=== PATIENT | female | born 1960 | race Caucasian/White ===

== ENCOUNTER 2018-12-01 11:40 | Inpatient (IN) | payer OTHER ==
[~2018-12-01] VITALS: Ht 167.6 cm; Wt 77.1 kg
[2018-12-01] MEDS ORDERED: CYCL10TA9 PO (11:50)
[2018-12-01] MEDS ORDERED: ACET-1467 PO (11:50)
[2018-12-01] MEDS ORDERED: NAPR-1009 PO (11:50)
[2018-12-01] MEDS ORDERED: IV NORMAL SALINE 1000 ML BAG IV ONE (12:00)
[2018-12-01 12:14] LABS: BASOPHILS % (AUTO) 0.4 % (0.0-2.0); EOSINOPHILS % (AUTO) 0.1 % (0.0-7.0); HEMOGLOBIN 14.1 g/dL (10.9-14.3); LYMPHOCYTES # (AUTO) 1.2 K/uL (20.0-40.0); LYMPHOCYTES % (AUTO) 15.1 % (20.5-51.5); MEAN CORPUSCULAR HEMOGLOBIN 32.8 uug (24.7-32.8); MEAN CORPUSCULAR HGB CONC 34 g/dL (32.3-35.6); MEAN CORPUSCULAR VOLUME 97.8 fL (75.5-95.3); MONOCYTES # (AUTO) 0.3 K/uL (2.0-10.0); MONOCYTES % (AUTO) 3.6 % (0.0-11.0); NEUTROPHILS # (AUTO) 6.3 K/uL (1.8-8.9); NEUTROPHILS % (AUTO) 80.8 % (38.5-71.5); PLATELET COUNT (AUTO) 215 K/uL (179-408); RED BLOOD CELL COUNT(AUTO) 4.29 MIL/uL (3.63-4.92); WHITE BLOOD COUNT (AUTO) 7.8 K/uL (3.8-11.8)
[2018-12-01 12:20] LABS: ETHANOL < 3 MG/DL (0-0)
[2018-12-01 12:25] LABS: ALANINE AMINOTRANSFERASE 36 U/L (14-59); ALKALINE PHOSPHATASE 59 U/L (50-136); ASPARTATE AMINOTRANSFERASE 33 U/L (15-37); BILIRUBIN,DIRECT 0.2 mg/dL (0.0-0.2); CARBON DIOXIDE 27 mmol/L (21-32); CHLORIDE 105 mmol/L (98-107); CREATININE 0.6 mg/dL (0.6-1.3); GLUCOSE 119 mg/dL (74-106); POTASSIUM 3.8 mmol/L (3.5-5.1); TOTAL PROTEIN, SERUM 7.5 g/dL (6.4-8.2); UREA NITROGEN, BLOOD 8 mg/dL (7-18)
[2018-12-01 12:26] LABS: ACETAMINOPHEN < 2.0 ug/mL (10-30)
--- NOTE | 2018-12-01 13:14 | NUR ---
Panel call to [email or web address] [facility] placed
[2018-12-01] MEDS ORDERED: MAGNESIUM HYDROXIDE 30 ML LIQUID UDC PO PRN (14:45)
[2018-12-01] MEDS ORDERED: ACETAMINOPHEN 325 MG TABLET PO PRN (14:45)
[2018-12-01] MEDS ORDERED: ONDANSETRON 4 MG/2 ML VIAL IV PRN (14:45)
--- NOTE | 2018-12-01 15:00 | NUR ---
ADMIT A 58YO FEMALE FROM ER WITH A CHIEF C/O OVERDOSING A MEDICATION. PT IS STILL DROWSY BUT AROUSABLE TO CALL. SLEEPING MOSTLY. 1:1 SITTER IS MADE AVAILBLE FOR SAFETY.
[2018-12-01] MEDS ORDERED: DEXTROSE 50% 50 ML VIAL IV PRN (15:30)
[2018-12-01 16:30] VITALS: BP 130/84
[2018-12-01] MEDS: BLOOD SUGAR DIAGNOSTIC 1 EACH STRIP VI SCH (17:51)
[2018-12-01] MEDS: ENOXAPARIN SODIUM 40 MG/0.4 ML DISP.SYRIN SQ SCH (17:53)
--- NOTE | 2018-12-01 18:00 | NUR ---
NO APPARENT RESPIRATORY DISTRESS NOTED. NPO AT THIS TIME.
--- NOTE | 2018-12-01 19:20 | NUR ---
RECEIVED PT AWAKE, ALERT AND ORIENTEDX2. AT BEDSIDE. SITTER AT BEDSIDE. PT SHOWS NO SIGNS OF ACUTE DISTRESS.PT IV INTACT. SAFETY AND COMFORT PROVIDED.WILL CONTINUE TO MONITOR.
[2018-12-01] MEDS: IV D5 1/2 NS 1000 ML 1,000 ML IV PRN (19:26)
[2018-12-01 20:08] VITALS: BP 110/68
[2018-12-02 00:25] VITALS: BP 132/73
[2018-12-02 05:34] VITALS: BP 126/70
[2018-12-02 06:02] LABS: BASOPHILS % (AUTO) 0.4 % (0.0-2.0); EOSINOPHILS # (AUTO) 0.1 K/uL (0.0-0.7); EOSINOPHILS % (AUTO) 2.4 % (0.0-7.0); HEMATOCRIT 37.9 % (31.2-41.9); HEMOGLOBIN 12.9 g/dL (10.9-14.3); LYMPHOCYTES % (AUTO) 33.1 % (20.5-51.5); MEAN CORPUSCULAR HEMOGLOBIN 33.2 uug (24.7-32.8); MEAN CORPUSCULAR HGB CONC 34 g/dL (32.3-35.6); MONOCYTES # (AUTO) 0.4 K/uL (2.0-10.0); MONOCYTES % (AUTO) 6.6 % (0.0-11.0); NEUTROPHILS # (AUTO) 3.4 K/uL (1.8-8.9); NEUTROPHILS % (AUTO) 57.5 % (38.5-71.5); PLATELET COUNT (AUTO) 227 K/uL (179-408); RED BLOOD CELL COUNT(AUTO) 3.87 MIL/uL (3.63-4.92); WHITE BLOOD COUNT (AUTO) 5.9 K/uL (3.8-11.8)
[2018-12-02 06:18] LABS: BILIRUBIN,TOTAL 0.9 mg/dL (0.2-1.0); CREATININE 0.7 mg/dL (0.6-1.3); MAGNESIUM 1.7 mg/dL (1.8-2.4); PHOSPHOROUS 3.5 mg/dL (2.5-4.9); POTASSIUM 3.1 mmol/L (3.5-5.1); TOTAL PROTEIN, SERUM 5.9 g/dL (6.4-8.2)
[2018-12-02 06:27] LABS: THYROID STIMULATING HORMONE 7.834 mIU/mL (0.358-3.740)
--- NOTE | 2018-12-02 06:33 | NUR ---
PT SLEPT THROUGHOUT THE SHIFT . PT SHOWS NO SIGNS OF ACUTE DISTRESS. PRESCRIBED MEDICATION GIVEN AND PT TOLERATED IT WELL. SAFETY AND COMFORT PROVIDED. IV INTACT. SITTER AT BEDSIDE FOR SAFETY. PT HAD EPISODES OF ANXIETY. PT SAYING SHE HAS SHORTNESS OF BREATH BUT IN PULSE OXIMETER PT SHOWING 100% ROOM AIR. PT SIGNED BELONGING LIST THAT SHE HAS $13. PT SIGNED THAT SHE HAS MEDICATION. ALL NEEDS ARE MET. WILL ENDORSE ACCORDINGLY TO INCOMING NURSE FOR CONTINUITY OF CARE.
[2018-12-02] MEDS: BLOOD SUGAR DIAGNOSTIC 1 EACH STRIP VI SCH (06:39)
[2018-12-02] MEDS: IV D5 1/2 NS 1000 ML 1,000 ML IV PRN ×2 (07:16→22:32)
--- NOTE | 2018-12-02 07:30 | NUR ---
RECIEVED PT IN BED WITH 1:1 SITTER, AWAKE AND ORIENTED X3. NO APPARENT DISTRESS NOTED.
[2018-12-02 07:45] LABS: *BILIRUBIN,URIN NEGATIVE (NEGATIVE); *BLOOD, URINE NEGATIVE (NEGATIVE); *CLARITY,URINE CLEAR (CLEAR); *COLOR,URINE YELLOW (YELLOW); *KETONES,URINE NEGATIVE (NEGATIVE); *UROBILINOGEN,URINE 0.2 E.U./dl (NORMAL); LEUKOCYTE ESTERASE ,URINE NEGATIVE (NEGATIVE); NITRITE, URINE NEGATIVE (NEGATIVE); PH,URINE 5.5 (5.0-8.0); UGLUCOSE NEGATIVE (NEGATIVE)
[2018-12-02 07:59] LABS: *AMPHETAMINE, URINE NEGATIVE (NEGATIVE); *BARBITURATE, URINE NEGATIVE (NEGATIVE); *CANNABINOID, URINE POSITIVE (NEGATIVE); *COCCAINE, URINE NEGATIVE (NEGATIVE); *OPIATE, URINE POSITIVE (NEGATIVE); *PHENCYCLIDINE SCREEN,URINE NEGATIVE (NEGATIVE)
--- NOTE | 2018-12-02 08:00 | NUR ---
PT IS STARTING TO BE JITTERY AND ANXIOUS. REQUESTED TO HAVE A VALIUM. NOTIFIED AAKASH ALEXANDER.
[2018-12-02 08:01] VITALS: BP 114/71
[2018-12-02] MEDS: MAGNESIUM SULFATE/D5W 100 ML IV SCH ×2 (08:06→09:07)
--- NOTE | 2018-12-02 09:00 | NUR ---
REPLACED MAGNESIUM AND POTASSIUM IVPB ORDERED.
--- NOTE | 2018-12-02 09:00 | NUR ---
PT IS EATIONG HER BREAKFAST, TOLERATED WELL. PT IS MEDICATED WITH VALIUM 10MG PO ORDERED. ALERTED THE CRISIS TEAM PER ANDRE NOISE TESTER.
[2018-12-02] MEDS: ENOXAPARIN SODIUM 40 MG/0.4 ML DISP.SYRIN SQ SCH (09:10)
[2018-12-02] MEDS: DIAZEPAM 10 MG TABLET PO PRN ×2 (09:15→21:39)
--- NOTE | 2018-12-02 10:30 | NUR ---
HUGH FROM THE CRISIS TEAM CAME IN TO EVALUATE THE PT BUT PT WAS VERY SOUND ASLEEP.
[2018-12-02] MEDS: POTASSIUM CHLORIDE 50 ML IV SCH ×2 (10:59→12:05)
[2018-12-02 11:42] VITALS: BP 101/58
--- NOTE | 2018-12-02 13:00 | NUR ---
SEEN AND EXAMINED BY DR WHALEY WITH NEW ORDERS.
[2018-12-02 15:39] VITALS: BP 105/58
--- NOTE | 2018-12-02 18:30 | NUR ---
PT IS BEHAVED ALL DAY. ABLE TO AMBULATE TO THE BATHROOM WITH ASSISTANCE.
--- NOTE | 2018-12-02 19:20 | NUR ---
RECEIVED PT AWAKE, ALERT AND ORIENTEDX4. PT SHOWS NO SIGNS OF ACUTE DISTRESS. PT IV INTACT. AT BEDSIDE. SITTER AT BEDSIDE.SAFETY AND COMFORT PROVIDED. WILL CONTINUE TO MONITOR.
[2018-12-02 20:21] VITALS: BP 114/65
[2018-12-03 04:21] VITALS: BP 112/68
--- NOTE | 2018-12-03 06:52 | NUR ---
PT SLEPT THROUGHOUT THE SHIFT.PT SHOWS NO SIGNS OF ACUTE DISTRESS. PRESCRIBED MEDICATION GIVEN AND PT TOLERATED IT WELL. PT GIVEN VALIUM LAST NIGHT AT 2139H FOR PT BEING AGITATED. PT TOLERATED IT WELL. SAFETY AND COMFORT. PROVIDED. ALL NEEDS ARE MET. WILL ENDORSE ACCORDINGLY TO INCOMING NURSE FOR CONTINUITY OF CARE.
[2018-12-03 06:58] LABS: BASOPHILS % (AUTO) 0.5 % (0.0-2.0); EOSINOPHILS # (AUTO) 0.3 K/uL (0.0-0.7); EOSINOPHILS % (AUTO) 5.6 % (0.0-7.0); HEMATOCRIT 38.4 % (31.2-41.9); HEMOGLOBIN 12.8 g/dL (10.9-14.3); LYMPHOCYTES % (AUTO) 37.4 % (20.5-51.5); MEAN CORPUSCULAR HEMOGLOBIN 33.2 uug (24.7-32.8); MEAN CORPUSCULAR HGB CONC 34 g/dL (32.3-35.6); MEAN CORPUSCULAR VOLUME 99.1 fL (75.5-95.3); MONOCYTES # (AUTO) 0.3 K/uL (2.0-10.0); MONOCYTES % (AUTO) 6.1 % (0.0-11.0); NEUTROPHILS # (AUTO) 2.6 K/uL (1.8-8.9); NEUTROPHILS % (AUTO) 50.4 % (38.5-71.5); PLATELET COUNT (AUTO) 212 K/uL (179-408); RED BLOOD CELL COUNT(AUTO) 3.87 MIL/uL (3.63-4.92); WHITE BLOOD COUNT (AUTO) 5.2 K/uL (3.8-11.8)
[2018-12-03 07:10] LABS: CREATININE 0.8 mg/dL (0.6-1.3); MAGNESIUM 1.9 mg/dL (1.8-2.4); POTASSIUM 3.6 mmol/L (3.5-5.1)
[2018-12-03] MEDS: ENOXAPARIN SODIUM 40 MG/0.4 ML DISP.SYRIN SQ SCH (08:12)
[2018-12-03] MEDS: IV D5 1/2 NS 1000 ML 1,000 ML IV PRN (08:49)
[2018-12-03 10:40] VITALS: BP 102/61
--- NOTE | 2018-12-03 12:19 | NUR ---
d/c orders received noted and carried out,d/c heplock per md orders.dc instruction and education given to the pt,,pt left the facility via private car in stable condition
== END 2018-12-03 12:20 | disposition home or self-care (01) | DRG 812 ==
LOC: ER 11:41 → TELE3 14:32 → MEDSURG3 12-02 11:21
PROVIDERS: ADMIT Nurse Practitioner Acute Care; ATTEND Nurse Practitioner Acute Care
DX: T42.4X1A Poisoning by benzodiazepines, accidental (unintentional), initial encounter (principal); G92 Toxic encephalopathy; E44.1 Mild protein-calorie malnutrition; E83.42 Hypomagnesemia; F32.9 Major depressive disorder, single episode, unspecified; E87.6 Hypokalemia; M79.7 Fibromyalgia; M19.90 Unspecified osteoarthritis, unspecified site; R73.9 Hyperglycemia, unspecified; E88.09 Other disorders of plasma-protein metabolism, not elsewhere classified; Z68.27 Body mass index [BMI] 27.0-27.9, adult; T40.7X1A Poisoning by cannabis (derivatives), accidental (unintentional), initial encounter; Y92.009 Unspecified place in unspecified non-institutional (private) residence as the place of occurrence of the external cause
CPT/HCPCS: 36415; 71045; 80307; 83735; 84100; 84443; 85025; 93005; A4663; G0378; G0480; G0480-TC; J1650; J3475; J3480; J3490; J7030